=== PATIENT | male | born 2000 | race Hispanic/Latino ===

== ENCOUNTER 2021-06-10 22:39 | Emergency (ER) | payer SELFPAY ==
[~2021-06-10] VITALS: Ht 180.3 cm; Wt 65.8 kg
[2021-06-11 00:25] LABS: BASOPHILS % (AUTO) 0.4 % (0.0-5.0); EOSINOPHILS % (AUTO) 0.4 % (0.0-8.0); HEMATOCRIT 45.9 % (42-54); LYMPHOCYTES % (AUTO) 27.5 % (21.0-51.0); MEAN CORPUSCULAR HEMOGLOBIN 29.8 pg (27.0-33.0); MEAN CORPUSCULAR HGB CONC 33.6 g/dL (32.0-36.0); MONOCYTES % (AUTO) 6.5 % (3.0-13.0); NEUTROPHILS % (AUTO) 64.9 % (40.0-77.0); PLATELET COUNT (AUTO) 310 K/uL (130-400); RED BLOOD CELL COUNT(AUTO) 5.16 MIL/uL (4.50-6.20); RED CELL DISTRIBUTION WIDTH 11.4 % (11.0-15.5); WHITE BLOOD COUNT (AUTO) 9.6 K/uL (4.8-10.8)
[2021-06-11] MEDS: METOCLOPRAMIDE 10 MG/2 ML VIAL IVP ONE (00:25)
[2021-06-11] MEDS: PANTOPRAZOLE 40 MG/VIAL IVP ONE (00:25)
[2021-06-11] MEDS: FAMOTIDINE 20MG VIAL IV ONE (00:25)
[2021-06-11] MEDS: 0.9%NACL 1000ML 1,000 ML IV ONE (00:25)
[2021-06-11 00:34] LABS: INR 1.12 (0.85-1.15); PROTHROMBIN TIME 12.1 SEC (9.6-11.6)
[2021-06-11 00:37] LABS: ALBUMIN 4.8 g/dL (3.5-5.0); BILIRUBIN,TOTAL 1.1 mg/dL (0.2-1.0); TOTAL PROTEIN, SERUM 8.1 g/dL (6.0-8.3)
[2021-06-11 00:45] LABS: APPEARANCE,URINE Clear (CLEAR); BILIRUBIN,URINE Negative (NEGATIVE); COLOR,URINE Yellow (YELLOW); GLUCOSE, URINE (UA) Negative (NEGATIVE); KETONES,URINE >=80 mg/dL (NEGATIVE); LEUKOCYTE ESTERASE ,URINE Negative (NEGATIVE); NITRATE,URINE Negative (NEGATIVE); OCCULT BLOOD,URINE Negative (NEGATIVE); PH,URINE 5.5 (5.0-8.0); PROTEIN,URINE Negative (NEGATIVE)
[2021-06-11] MEDS ORDERED: DICY20TA2 PO (01:33)
[2021-06-11] MEDS ORDERED: METO-296 PO (01:53)
[2021-06-11] MEDS ORDERED: PANT40TA PO (01:53)
[2021-06-11] MEDS ORDERED: ONDA4TAB10 PO (01:53)
[2021-06-11 01:56] VITALS: BP 136/87
== END 2021-06-11 02:01 | disposition home or self-care (01) ==
LOC: EDH 22:39
DX: K29.70 Gastritis, unspecified, without bleeding (principal); E86.9 Volume depletion, unspecified
CPT/HCPCS: 36415; 80053; 81003; 83690; 85025; 85610; 96361; 96374; 96375; 99284; C9113; J2765; J3490; J7030